=== PATIENT | male | born 1980 | race Caucasian/White ===

== ENCOUNTER 2021-05-14 16:41 | Emergency (ER) | payer BC, OTHER ==
[~2021-05-14] VITALS: Ht 170.2 cm; Wt 81.6 kg
[2021-05-14 16:55] VITALS: BP 132/94
[2021-05-14] MEDS ORDERED: AZIT250T PO (17:14)
[2021-05-14] MEDS ORDERED: GUAI-671 PO (17:14)
--- NOTE | 2021-05-14 17:38 | NUR ---
Patient discharged to home in stable condition. Written and verbal after care instructions given. Patient verbalizes understanding of instruction. Pt ambulatory with a steady gait
--- NOTE | 2021-05-14 17:40 | NUR ---
TEL: [phone]
--- NOTE | 2021-05-14 18:48 | NUR ---
PT NOTIFIED OF NEGATIVE COVID RESULT OVER THE PHONE.
== END 2021-05-14 17:40 | disposition home or self-care (01) ==
LOC: ER 16:59
DX: J20.9 Acute bronchitis, unspecified (principal); Z20.822 Contact with and (suspected) exposure to COVID-19; E11.9 Type 2 diabetes mellitus without complications; E78.00 Pure hypercholesterolemia, unspecified; I10 Essential (primary) hypertension
CPT/HCPCS: 87426; 99283; C9803